=== PATIENT | male | born 1995 | race Caucasian/White ===

== ENCOUNTER 2021-06-13 15:19 | Emergency (ER) | payer OTHER, SELFPAY ==
[2021-06-13 15:30] VITALS: BP 144/84; PULSE 72; RESP 18; TEMP 37.1; O2SAT 98; BMI 31.8
--- NOTE | 2021-06-13 16:00 | XR_ITS ---
FINAL REPORT CLINICAL HISTORY: constipation, blood in stool FINDINGS: SINGLE VIEW ABDOMEN There is a nonspecific, nonobstructive gas pattern. There is no bowel dilatation. No abnormal calcification is identified. There is a moderate amount of retained stool throughout the colon. IMPRESSION: Stool burden as above. Reviewed, Interpreted and Dictated by Chalino Toro III, MD Transcribed by Stacy Stovall Authenticated by Chalino Toro III, MD on 06/13/2021 04:22:43 PM [facility]
--- NOTE | 2021-06-13 16:53 | HMH.EDUTC ---
[facility] [place] Disposition Clinical Impression: Constipation Qualifiers: Constipation type: unspecified constipation type Qualified Code(s): K59.00 - Constipation, unspecified Disposition: Home, Self-Care Condition on Discharge: Good Instructions: DI for Constipation, Constipation, Polyethylene Glycol 3350 Additional Instructions: Drink plenty of fluids. Eat a diet that is high in fiber. Eat more fruits and vegetables. Take the medications as directed. Take the dulcolax stool softener every day. Take the miralax laxative daily as needed for constipation. Follow up with your regular doctor. GO TO THE ER FOR ANY WORSENING SYMPTOMS Prescriptions: Docusate Sodium [Colace] 100 mg PO DAILY 30 Days #30 cap Transmission Status: Pending to [facility] polyethylene glycoL 3350 [Miralax Powder] 17 gm PO DAILYP PRN 30 Days #119 gm PRN Reason: Constipation Transmission Status: Pending to [facility] Referrals: Raul Powell MD [Primary Care Provider] - Time of Disposition: 17:19 Medical Decision Making - Medical Records Medical records reviewed: No: I reviewed the patient's medical records. - Mode Inquiry Pt receiving controlled substance: No Vital Signs: 06/13/21 15:30 Temperature 98.7 F Temperature Source Oral Pulse Rate [Left Brachial] 72 Respiratory Rate 18 Blood Pressure [Left Arm] 144/84 H Blood Pressure Mean [Left Arm] 104 Blood Pressure Source [Left Arm] Automatic Cuff Blood Pressure Position [Left Arm] Sitting 02 Sat by Pulse Oximetry 98 Oxygen Delivery Method Room Air - Radiology Data #1 Image(s): Abdomen Image Reviewed: Yes I reviewed the patient's radiology image, Yes I have reviewed radiologist's interpretation FINAL REPORT CLINICAL HISTORY: constipation, blood in stool FINDINGS: SINGLE VIEW ABDOMEN There is a nonspecific, nonobstructive gas pattern. There is no bowel dilatation. No abnormal calcification is identified. There is a moderate amount of retained stool throughout the colon. IMPRESSION: Stool burden as above. Reviewed, Interpreted and Dictated by Chalino Toro III, MD Transcribed by Stacy Stovall Authenticated by Chalino Toro III, MD on 06/13/2021 04:22:43 PM [facility] HPI - General Stated complaint: constipated Time Seen by Provider: 06/13/21 16:53 Mode of Arrival: Ambulatory Source of Information: Patient Limitations: No Limitations Description of Symptoms (Recalled from Triage Doc. by RN): PATIENT C/O STOMACH ISSUES AND CONSTIPATION X 1 WEEK. REPORTS HE DID HAVE A SMALL BOWEL MOVEMENT THIS MORNING HEENT Symptoms (Recalled from RN notes): No Resp Symptoms (Recalled from RN notes): No Skin Symptoms (Recalled from RN notes): No MS Symptoms (Recalled from RN notes): No Functional Status (Recalled from RN notes): WNL - History of Present Illness Provider Complaint: He states that he has had trouble with constipation for the past several days. He is having small bowel movements, but there has been blood with the stools. He thinks that he has irritated himself from being so constipated. He denies any abdominal pain. He denies significant rectal pain and any history of hemorrhoids. - Related Data Previous Rx's Medication Instructions Recorded Docusate Sodium [Colace] 100 mg PO DAILY 30 Days #30 cap 06/13/21 polyethylene glycoL 3350 [Miralax 17 gm PO DAILYP PRN 30 Days #119 gm 06/13/21 Powder] Allergies Allergy/AdvReac Type Severity Reaction Status Date / Time No Known Allergies Allergy Verified 04/19/18 09:16 - Worker's Comp Is this a Worker's Comp case?: No [facility] History - Hepatitis A Screen Drug use history?: No High risk sexual behaviors?: No History of sexually transmitted infection?: No Currently employed?: No Childcare worker?: No Do you have indoor plumbing?: Yes Do you have electricity?: Yes Attestation statement:: This patient has been screened for Hepatitis A
[2021-06-13 17:21] VITALS: BP 144/84; PULSE 72; RESP 18; TEMP 37.1; O2SAT 98
== END 2021-06-13 17:26 | disposition home or self-care (01) ==
PROVIDERS: Emergency Provider Nurse Practitioner Family; PCP Family Medicine
DX: K59.00 Constipation, unspecified (principal)
CPT/HCPCS: 74018; 99202; G0463

== ENCOUNTER → 2022-03-20 12:45 | Outpatient (CLI) | payer OTHER, SELFPAY ==
[2022-03-20 13:10] LABS: Basophils # 0.2 K/mm3 (0-0.2); Basophils % 3.1 % (0.1-2.0); Eosinophils # 0.1 K/mm3 (0.0-0.4); Eosinophils % 0.8 % (0.1-12.0); Hematocrit 48.3 % (42.0-52.0); Lymphocytes # 0.9 K/mm3 (0.7-4.5); Lymphocytes % 12.5 % (10-50); Mean Corpuscular HGB Conc 33.2 g/dL (31.8-35.4); Mean Corpuscular Hemoglobin 30.6 pg (27.0-31.2); Mean Platelet Volume 7.5 fl (7.4-10.4); Monocytes # 0.9 K/mm3 (0.1-1.0); Monocytes % 12.5 % (1.7-9.3); Neutrophils % 71.2 % (37.0-80.0); Platelet Count 277 K/mm3 (142-424); Red Blood Count 5.25 M/mm3 (4.60-6.20); Red Cell Distribution Width 12.8 % (11.5-17.5)
== END ==
PROVIDERS: PCP Family Medicine; Visit Provider Family Medicine
DX: U07.1 COVID-19 (principal)
CPT/HCPCS: 36415; 85025; 87275; 87276; C9803; U0003; U0005